=== PATIENT | male | born 2000 | race Caucasian/White ===

== ENCOUNTER 2022-09-10 14:16 | Emergency (ER) | payer MEDICAID, SELFPAY ==
[2022-09-10 14:17] VITALS: BP 143/78; PULSE 98; RESP 18; TEMP 36.3; O2SAT 100; BMI 35.6
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
--- NOTE | 2022-09-10 16:08 | CT_ITS ---
STUDY: CT CERVICAL SPINE WITHOUT CONTRAST REASON FOR EXAM: Male, 21 years old. PAIN/INJURY RADIATION DOSAGE (If Supplied By Facility): CTDIvol = ( 22.15 ) mGy, DLP = ( 441.11 ) mGycm TECHNIQUE: High resolution transaxial imaging was performed without contrast material. Sagittal and coronal images were reconstructed. Individualized dose optimization techniques were used for this CT. COMPARISON: None FINDINGS: Normal craniovertebral junction. Normal anterior atlantoaxial articulation. Normal odontoid process. Decreased cervical lordosis possibly due to muscle spasm or positioning artifact. Normal vertebral bodies and posterior osseous elements. C2-3: Normal endplates. Normal disc height and morphology. Normal central canal and intervertebral neuroforamina. C3-4: Normal endplates. Normal disc height and morphology. Normal central canal and intervertebral neuroforamina. C4-5: Normal endplates. Normal disc height and morphology. Normal central canal and intervertebral neuroforamina. C5-6: Normal endplates. Normal disc height and morphology. Normal central canal and intervertebral neuroforamina. C6-7: Normal endplates. Normal disc height and morphology. Normal central canal and intervertebral neuroforamina. C7-T1: Normal endplates. Normal disc height and morphology. Normal central canal and intervertebral neuroforamina. Normal visualized soft tissue structures. CT/Spine Cervical without Contras IMPRESSION: Decreased cervical lordosis otherwise normal unenhanced CT examination of the cervical spine. Electronically Signed: Hiram Anderson MD at 16:21 EST ,
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
== END 2022-09-10 16:58 | disposition home or self-care (01) ==
PROVIDERS: Emergency Provider Emergency Medicine; Visit Provider Emergency Medicine
DX: S16.1XXA Strain of muscle, fascia and tendon at neck level, initial encounter (principal); S09.90XA Unspecified injury of head, initial encounter; F17.210 Nicotine dependence, cigarettes, uncomplicated; F17.290 Nicotine dependence, other tobacco product, uncomplicated; E66.9 Obesity, unspecified; W22.8XXA Striking against or struck by other objects, initial encounter
CPT/HCPCS: 70450; 72125; 99282

== ENCOUNTER 2022-11-19 09:46 | Emergency (ER) | payer MEDICAID, SELFPAY ==
[2022-11-19 09:47] VITALS: BP 137/97; PULSE 100; RESP 17; TEMP 36.1; O2SAT 97; BMI 35.6
--- NOTE | 2022-11-19 10:12 | EDS_ITS ---
HPI History of Present Illness Chief Complaint: Back Informant: patient Narrative Narrative: Patient is a 22-year-old male with history of neck pain since he was 17 presenting with neck pain. He feels has been worsening over the past few months. Denies any new injury. Is tried seeing a chiropractor with no relief. States has been on Flexeril constantly for 5 years and it does not seem to help. Ibuprofen and Tylenol do not seem to help. Had appointment to see his primary care doctor this morning but it was canceled so he came to the ER. Patient was hoping to talk to his doctor about it today. Patient states when he lived in [place] he had been referred to pain management and was on tramadol for at one point. He is never seen a spine doctor. He is not currently in any physical therapy. No other complaints at this time. Denies any associated numbness or tingling, vision changes, hearing changes, difficulty dropping things, significant low back pain or weakness/tingling in his lower extremities. Denies any cauda equina syndromes. Denies any fever. Denies any persistent night sweats. Denies any unintentional weight loss. No other complaints at this time. [facility] Medical History (Updated 11/19/22 @ 10:[address] Elena Gilliland DO) Back pain Neck pain Home Medications cyclobenzaprine 10 mg tablet 10 mg PO DAILY 09/10/22 [History Last Taken Unknown] tizanidine 4 mg tablet 4 mg PO Q8H PRN muscle spasticity #20 tabs 11/19/22 [Rx Last Taken Unknown] Allergy/AdvReac Type Severity Reaction Status Date / Time No Known Allergies Allergy Verified 11/19/22 09:47 Social History Smoking Status: Current every day smoker tobacco type: cigarettes and e- cigarettes ROS ROS ED Constitutional Constitutional ED: Denies chills or fever(s) Eyes Eyes: Denies change in vision ENT ENT ED: Denies rhinorrhea or sore throat Cardiovascular Cardiovascular: Denies chest pain Respiratory/Chest Respiratory/Chest: Denies dyspnea Gastrointestinal Gastrointestinal: Denies nausea or vomiting Genitourinary Genitourinary ED: Denies dysuria or urinary frequency Musculoskeletal Musculoskeletal: Reports neck pain; Denies arthralgias or myalgias Integumentary Denies rash Neurologic Neurologic: Denies paresthesias or weakness Psychiatric Psychiatric: Denies anxiety Hematologic/Lymphatic Hematologic/Lymphatic: Denies easy bleeding or easy bruising EXAM Physical Exam Const Vital Signs: 11/19/22 09:47 Temperature 96.9 F L Temperature Source Temporal Pulse Rate 100 Respiratory Rate 17 Blood Pressure 137/97 H Blood Pressure Mean 110 Pulse Ox 97 Oxygen Delivery Method Room Air Positive well nourished and well developed General Appearance ED: well developed and NAD HEENT Reports moist mucous membranes HEENT Narrative: Normal external ears. Negative for trauma Eyes PERRL and EOMs intact bilaterally Neck supple and no JVD Neck Narrative: No midline tenderness. Mild bilateral paraspinal tenderness, right worse than left. No step-off sign. Normal range of motion of the neck. No meningeal signs. Resp normal respiratory effort Cardio regular rate and regular rhythm GI normal to inspection, nondistended, normoactive bowel sounds Back/Spine normal to inspection and no thoracic nor lumbar tenderness Back/Spine Narrative: Normal range of motion. No midline tenderness. Extremity normal to inspection General Extremety ED: Negative for tenderness Neuro oriented x3 and no sensory deficits noted Neuro Narrative: Patient is equal tower attendant strength bilateral upper extremities. 5/5 strength with pulling and pushing of the arms. 5/5 strength with AB duction and adduction. Sensation intact in all dermatomes of the upper extremities. Motor Exam: strength 5/5 throughout Psych mental status grossly normal Skin no rashes or lesions noted and no wounds MDM MDM MDM Narrative Medical decision making narrative: Patient is evaluated for worsening of his chronic neck pain. He does not have any midline tenderness. His normal neurologic exam. His vital signs are normal. I do not suspect meningitis, discitis, myositis or other infection. Patient is given a dose of Norflex. He will be started on a course of tizanidin e. He is given referral for spine given the longevity of his symptoms as well as pain management. Patient not have any lower extremity symptoms never low suspicion for cauda equina syndrome or other cord compression syndrome. Patient agreeable with plan of care. Patient ambulated into the emergency room with a very steady gait. Patient is normal phonation and a normal oropharynx. Low suspicion for peritonsillar retropharyngeal abscess. He does not have any midline tenderness I do not think he imaging is indicated at this time. Discharge Plan Triage Chief Complaint: Back ED Provider: Elena Gilliland Dx/Rx/DC Orders Clinical Impression: Neck pain, chronic Instructions: ED Neck Pain Prescriptions: New tizanidine 4 mg tablet 4 mg PO Q8H PRN (Reason: muscle spasticity) Qty: 20 0RF No Action cyclobenzaprine 10 mg tablet 10 mg PO DAILY Label Comments: TAKE 1 TABLET BY MOUTH ONCE DAILY Primary Care Provider: Zayra Quezada NP Referrals: Dillon Lopez DO [Non-Staff] - As Needed Hiram Hernández DO [Med Staff - Active Staff] - As Needed Zayra Quezada ROPE TWISTING MACHINE OPERATOR, ROPE TWISTING MACHINE OPERATOR-C [Primary Care Provider] - Activity Restrictions/Additional Instructions: Alternate ibuprofen (600 mg) and Tylenol as well for pain. As we talked you can use [id number] Lidoderm patches or heating pads. Continue to follow-up with your family doctor and even given referral for spine orthopedics, Dr. Hernández, and pain management, Dr. Lopez. Disposition Disposition: Home, Self Care
[2022-11-19] MEDS: Orphenadrine 60 MG/2 ML Ampul IM (10:15)
[2022-11-19 10:38] VITALS: BP 137/82; PULSE 73; RESP 15; O2SAT 98
== END 2022-11-19 10:38 | disposition home or self-care (01) ==
PROVIDERS: Emergency Provider Emergency Medicine; PCP Internal Medicine; Visit Provider Emergency Medicine
DX: M54.2 Cervicalgia (principal); G89.29 Other chronic pain; F17.210 Nicotine dependence, cigarettes, uncomplicated; F17.290 Nicotine dependence, other tobacco product, uncomplicated
CPT/HCPCS: 96372; 99282

== ENCOUNTER 2022-11-26 16:41 | Emergency (ER) | payer MEDICAID, SELFPAY ==
[2022-11-26 16:42] VITALS: BP 138/95; PULSE 105; RESP 18; TEMP 36.5; O2SAT 97; BMI 35.6
--- NOTE | 2022-11-26 17:24 | ED.VIS.BACK ---
HPI History of Present Illness Chief Complaint: Back Informant: patient Narrative Narrative: Patient has pain in his right upper back and lower neck area. He has had this essentially for 5 or 6 years. He has seen multiple physicians had physical therapy and been on and off Flexeril quite frequently. He was seen here recently placed on tizanidine. Seem to get better but now it is coming back again. This is exactly the same as its been for years. He has no known specific original injury nor any reason to have it exacerbate. He has no numbness tingling weakness with it. No trouble breathing. No lightheadedness. There is no difference in today's symptoms. He did have an appointment with a new primary physician last week but they canceled it and are trying to reschedule for him. [facility] Medical History Back pain Neck pain Home Medications cyclobenzaprine 10 mg tablet 10 mg PO DAILY 09/10/22 [History Last Taken Unknown] tizanidine 4 mg tablet 4 mg PO Q8H PRN muscle spasticity #20 tabs 11/19/22 [Rx Last Taken Unknown] prednisone 20 mg tablet 60 mg PO DAILY #15 TABLETS 11/26/22 [Rx Last Taken Unknown] Allergy/AdvReac Type Severity Reaction Status Date / Time No Known Allergies Allergy Verified 11/26/22 16:43 Social History Smoking Status: Current every day smoker tobacco type: cigarettes and e-cigarettes ROS ROS ED Constitutional Constitutional ED: Denies chills or fever(s) Eyes Eyes: Denies change in vision ENT ENT ED: Denies rhinorrhea or sore throat Cardiovascular Cardiovascular: Denies chest pain Respiratory/Chest Respiratory/Chest: Denies dyspnea Gastrointestinal Gastrointestinal: Denies nausea or vomiting Musculoskeletal Musculoskeletal: Reports other Details: See history of present illness peer Integumentary Denies abscess, Abrasions or rash Neurologic Neurologic: Denies headache(s), paresthesias or weakness Endocrine Endocrinology: Denies polydipsia or polyuria Hematologic/Lymphatic Hematologic/Lymphatic: Denies easy bleeding or easy bruising Allergic/Immunologic Allergic/Immunologic ED: Denies urticaria EXAM Physical Exam Narrative Exam Narrative: Patient is awake alert no acute distress. He is sitting in bed comfortable. HEENT shows no sign of trauma or rash. Neck shows no real tenderness on the neck. But he has tenderness on the right trapezius area and supraspinatus muscles. A little bit down the paraspinals on the right side also. No rashes erythema swelling crepitance or warmth is noted. Lungs are clear bilaterally. No pain with a deep breath. Heart is regular. Rate about 90 when I hear him. Pulses are normal. Abdomen soft nontender. Extremities show no weakness numbness tingling swelling or asymmetry. Const Vital Signs: 11/26/22 16:42 Temperature 97.7 F L Temperature Source Temporal Pulse Rate 105 H Respiratory Rate 18 Blood Pressure 138/95 H Blood Pressure Mean 109 Pulse Ox 97 Oxygen Delivery Method Room Air MDM MDM MDM Narrative Medical decision making narrative: Patient has been having this pain for many years. This is an exacerbation. I do not think this requires acute imaging or blood work at this time. He has muscle relaxants. I will give him a shot of Toradol here. I will try a short course of steroids to see if that will help. He has an appointment with a new physician but he just does not have an time for that yet as it got really scheduled. We discussed reasons to return. Discharge Plan Triage Chief Complaint: Back ED Provider: Luiz Gibson Dx/Rx/DC Orders Clinical Impression: Neck pain, chronic Instructions: ED Neck Pain, ED Back and Neck Pain, General Prescriptions: New prednisone 20 mg tablet 60 mg PO DAILY Qty: 15 0RF No Action cyclobenzaprine 10 mg tablet 10 mg PO DAILY Label Comments: TAKE 1 TABLET BY MOUTH ONCE DAILY tizanidine 4 mg tablet 4 mg PO Q8H PRN (Reason: muscle spasticity) Qty: 20 0RF Primary Care Provider: Zayra Quezada NP Referrals: Zayra Quezada NP, [employer] [Primary Care Provider] - As soon as possible Disposition Disposition: Home, Self Care
[2022-11-26] MEDS: Ketorolac 60 MG/2 ML Vial IM (18:16)
== END 2022-11-26 18:19 | disposition home or self-care (01) ==
PROVIDERS: Emergency Provider Emergency Medicine; PCP Internal Medicine; Visit Provider Emergency Medicine
DX: M54.2 Cervicalgia (principal); F17.210 Nicotine dependence, cigarettes, uncomplicated; F17.290 Nicotine dependence, other tobacco product, uncomplicated; Z79.52 Long term (current) use of systemic steroids; G89.29 Other chronic pain
CPT/HCPCS: 96372; 99282

== ENCOUNTER 2023-03-07 14:02 | Emergency (ER) | payer MEDICAID, SELFPAY ==
[2023-03-07 14:02] VITALS: BP 171/108; PULSE 129; RESP 18; TEMP 36.8; O2SAT 100; BMI 38.2
--- NOTE | 2023-03-07 14:31 | EX.ED.VIS.PS ---
HPI HPI - Psych History of Present Illness Chief Complaint: Mental Health Narrative Narrative: Patient just found out his girlfriend has HPV. He wants to be checked and treated immediately. He is quite anxious, he tells me he feels dirty. He has no symptoms of any other type of STD. He has no penile discharge no testicular pain no redness. No recent fever or chills no rash. He essentially is quite anxious. [facility] Medical History Back pain Neck pain Home Medications cyclobenzaprine 10 mg tablet 10 mg PO DAILY 09/10/22 [History Last Taken Unknown] tizanidine 4 mg tablet 4 mg PO Q8H PRN muscle spasticity #20 tabs 11/19/22 [Rx Last Taken Unknown] prednisone 20 mg tablet 60 mg PO DAILY #15 TABLETS 11/26/22 [Rx Last Taken Unknown] Allergy/AdvReac Type Severity Reaction Status Date / Time No Known Allergies Allergy Verified 11/26/22 16:43 Social History Smoking Status: Current every day smoker tobacco type: cigarettes and e-cigarettes ROS ROS ED ROS Narrative Past medical history: Reviewed Medications: Reviewed Social history: Noncontributory Review of systems: All systems negative except as indicated General: No fever Cardiovascular: No chest pain Respiratory: No shortness of breath or cough Gastrointestinal: No abdominal pain, nausea vomiting or diarrhea Genitourinary: No dysuria. No penile discharge. No testicular pain no edema. No lesions on his groin Musculoskeletal: Denies myalgias no difficulty with ambulation Skin: No rash Neurological: No memory loss, confusion or any focal weakness Psych: Extremely anxious EXAM Physical Exam Const Vital Signs: 03/07/23 14:02 Temperature 98.2 F Temperature Source Temporal Pulse Rate 129 H Respiratory Rate 18 Blood Pressure 171/108 H Blood Pressure Mean 129 Pulse Ox 100 Oxygen Delivery Method Room Air MDM MDM MDM Narrative Medical decision making narrative: Patient was given anxiolytics with significant improvement in his symptoms. He now feels much better. I talked him about STDs, at this time I cannot check for HPV. He can follow-up outpatient. I did check GC and chlamydia although he has no signs or symptoms of this. I talked to his girlfriend who is in the room who was in his history. Discharge Plan Triage Chief Complaint: Mental Health ED Provider: Carlos Knowles Dx/Rx/DC Orders Clinical Impression: HPV exposure, Anxiety Prescriptions: No Action cyclobenzaprine 10 mg tablet 10 mg PO DAILY Label Comments: TAKE 1 TABLET BY MOUTH ONCE DAILY tizanidine 4 mg tablet 4 mg PO Q8H PRN (Reason: muscle spasticity) Qty: 20 0RF prednisone 20 mg tablet 60 mg PO DAILY Qty: 15 0RF Primary Care Provider: Zayra Quezada NP Referrals: Zayra Quezada FIELD RECRUITER, FIELD RECRUITER-C [Primary Care Provider] - Activity Restrictions/Additional Instructions: You were exposed to HPV. Unfortunately I cannot check for HPV in the ED. I did test for GC and chlamydia however it will take a few days to come back I do not see a reason for treatment. If anything changes return to the ED. Disposition Disposition: Home, Self Care
[2023-03-07] MEDS: hydrOXYzine 50 MG/ML Vial IM (14:51)
[2023-03-07] MEDS: LORazepam 2 MG/ML Syringe 1 MG IM (14:51)
[2023-03-07 17:27] LABS: Chlamydia Trachomatis by PCR Negative (Negative); Neisserai gonorrhoeae by PCR Negative (Negative); Probe Check PASS; Sample Adequacy Control PASS; Specimen Processing Control PASS
== END 2023-03-07 15:25 | disposition home or self-care (01) ==
PROVIDERS: Emergency Provider Emergency Medicine; PCP Internal Medicine; Visit Provider Emergency Medicine
DX: Z20.2 Contact with and (suspected) exposure to infections with a predominantly sexual mode of transmission (principal); F41.9 Anxiety disorder, unspecified; F17.210 Nicotine dependence, cigarettes, uncomplicated; F17.290 Nicotine dependence, other tobacco product, uncomplicated; Z11.3 Encounter for screening for infections with a predominantly sexual mode of transmission
CPT/HCPCS: 87491; 87591; 96372; 99282